=== PATIENT | female | born 1960 | race Caucasian/White ===

== ENCOUNTER → 2016-12-03 | Outpatient (CLI) | payer OTHER ==
[~2016-12-03] MED LIST: LINA72CA; MULTCAP42 PO; PARO1CAP PO; VENL75CA73 PO
== END | disposition home or self-care (01) ==
LOC: C.PAPS 08:52
PROVIDERS: ATTEND Obstetrics & Gynecology
DX: Z01.419 Encounter for gynecological examination (general) (routine) without abnormal findings (principal)

== ENCOUNTER → 2017-01-20 | Outpatient (CLI) | payer OTHER ==
[2017-01-20 14:15] VITALS: BP 114/74; PULSE 87; TEMP 36.7; O2SAT 97
--- NOTE | 2017-01-20 17:20 | Radiation Oncology Follow-Up ---
Radiation Oncology Follow-Up Date of Visit Jan 20, 2017. Reason For Visit Annual follow-up Radiation Completion Date 06/20/14 Diagnosis (1) Ductal carcinoma in situ of breast Status: Resolved Onset Date: 04/07/2014 Stage: 0 Permanent Comment: Status post abnormal left breast mammogram Status post ultrasound-guided fine-needle aspiration 04/07/2014 revealing carcinoma DCIS Status post needle localization biopsy 05/16/2014 DCIS Stage pTis Estrogen receptor positive progesterone receptor positive negative margins Tamoxifen stopped due to side effects Last Edited By: Mitzi Alvarez on Jan 26, 2015 15:05 History of Present Illness Ms. Renteria is a 56-year-old female who was followed with annual screenings. On she underwent a bilateral digital screening mammogram. This revealed new microcalcifications posteriorly in the upper aspect of the left breast seen on the MLO view only. There were no suspicious masses or architectural distortion seen on routine digital images. Based on these findings additional imaging was recommended. On 03/28/2014 patient underwent a unilateral digital diagnostic mammogram and targeted breast ultrasound. These revealed posteriorly in the upper outer aspect of the left breast suspicious microcalcifications. The area was able to be identified by ultrasound. Given its location a stereotactic biopsy was thought to be difficult but she was felt to be a candidate for an ultrasound-guided biopsy. On 04/07/2014 patient underwent an ultrasound-guided fine-needle aspiration and vacuum-assisted core biopsy. This tissue revealed malignant epithelial cells consistent with an adenocarcinoma. Specimen: [id number]. A breast biopsy was also obtained. This revealed ductal carcinoma in situ high grade with necrosis areas no invasive carcinoma was identified. Immunohistochemical stains were positive for both estrogen and progesterone receptors with greater than 90% of the cells staining positive. Specimen S [id number] Case: [id number]. She had previously been seen and treated at [facility] for a cervical cancer diagnosed in 2005. For this reason she had initially gone to [facility] for their evaluation and recommendations. They reviewed the slides and confirmed a ductal carcinoma in situ, solid and cribriform with nuclear grade 2-3 with comedonecrosis and associated microcalcifications. Accession: [id number].The patient was subsequently seen by Dr. Diaz for evaluation and discussion of the surgical treatment options. The decision was made to proceed with a breast conserving therapy. Therefore on 05/16/2014 the patient underwent a left breast needle localization biopsy. This confirmed residual ductal carcinoma in situ intermediate grade with comedonecrosis. The examined margins were free of neoplasm. DCIS was 0.2 cm from the inked inferior margin and less than 0.1 cm from the medial margin. Additional inferior and medial margins were taken and these were negative for in situ and invasive carcinoma. The area of residual DCIS appeared to extend over an area between 1 and 1.5 cm. Case: [id number]. Dr. Diaz's asked us to see his patient for discussion of the role of radiation. The patient is specifically interested in the use of accelerated partial breast irradiation. She was found to be a candidate for accelerated partial breast treatment. She was treated from 06/14/2014 to 06/20/2014. She received 3850 cGy. Interim History She isn't doing well over this past year. She has noted no changes to her breast she does have the telangiectasia which may be slightly worse compared to last year. She continues to have mild discomfort laterally. There is tightness when she raises her arm up over her head in the area of the axilla anteriorly. She has noted no masses in this area. No changes of the overlying skin. The discomfort is minimal and does not require any cldb-zhm-zjvtsho medications. She had a mammogram 03/20/2016. There was no evidence of breast malignancy. Routine diagnostic mammogram was recommended in 12 months. BI- RADS Category 2. Allergies Uncoded Allergies: sulfa (Allergy, Mild, hives, 06/02/14) Home Medications Scheduled Linaclotide (Linzess), DAILY Multiple Vitamin (Multivitamins), 1 CAP PO DAILY Venlafaxine Hcl (Venlafaxine Extended Rel), 1 CAP PO DAILY Review of Systems Gastrointestinal: Symptoms: Constipation, Diarrhea GI Comments: IBS Oral: Symptoms: No Problems Respiratory: Symptoms: WNL Urinary: Symptoms: WNL Skin: Symptoms: No Problems Other Skin Symptoms: Itchy at times Breast: Right Upper Arm Measurement: 26.0 Right Mid Arm Measurement: 22.5 Right Wrist Measurement: 16.5 Left Upper Arm Measurement: 25.8 Left Mid Arm Measurement: 21.5 Left Wrist Measurement: 16.0 Arm Dominence: Left Patient Cosmetic Evaluation: Excellent Staff Cosmetic Evalaluation: Excellent Physical Exam Vital Signs Date Time Temp Pulse Resp B/P (MAP) Pulse Ox O2 Delivery O2 Flow Rate FiO2 01/20/17 14:15 36.7 87 18 114/74 97 Pain: Pain Onset: since surgery or radiation Pain Duration: since surgery Side: Left Pain Location: axilla Patient Pain Scale: 0 - 10 Initial Pain Intensity: 0.0 Pain Description: Soreness Additional Comments: sometimes get a painthrough left breast, and it can be tender to touch Fatigue: None General Appearance: no apparent distress Eyes: normal inspection, EOMI ENT: normal ENT inspection, hearing grossly normal Neck: no adenopathy, thyroid normal Respiratory/Chest: lungs clear, no respiratory distress, no accessory muscle use Breast: Left breast. She does have telangiectasia in the upper outer portion of the breast. This is slightly increased compared to last year. There are no masses or tenderness and no change of the axilla. There is fibrous tissue in the area of her incision. There is mild tightness in the area of the pectoralis minor. She has full range of motion of the shoulder. Using the [place] score cosmesis she has a poor outcome. Right breast showed no masses or tenderness and no axillary adenopathy. Cardiovascular: regular rate, rhythm, no gallop, no murmur Abdomen: non tender, soft, no organomegaly Extremities: no pedal edema Neurologic/Psychiatric: no motor/sensory deficits, alert, normal mood/affect Skin: warm/dry Additional Studies Mammography as reviewed above. Assessment & Plan Plan: Continues with scheduled mammography. Continue follow-up with Dr. Diaz and her primary care physician. We discussed stretching exercises for her anterior axilla. We also discussed massage therapy for the tightness of the pectoralis minor and across the scar to the areas of fibrous tissue. We asked her to return to our office in 1 year. Total Time In Follow-Up I spent 20 minutes speaking to the patient and performing examination. I spent 15 minutes reviewing information in completing this note. Copy To Niels Diaz M.D.; Lindsay Marquez M.D. 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
== END | disposition home or self-care (01) ==
LOC: C.ONC 13:52
PROVIDERS: ATTEND Physician Assistant Medical
DX: Z08 Encounter for follow-up examination after completed treatment for malignant neoplasm (principal); Z92.3 Personal history of irradiation; Z85.3 Personal history of malignant neoplasm of breast

== ENCOUNTER → 2018-01-20 | Outpatient (CLI) | payer OTHER ==
[2017-01-20 14:15] VITALS: BP 114/74; PULSE 87
[~2018-01-20] MED LIST changes: -PARO1CAP PO
[2018-01-20 13:30] VITALS: BP 139/83; PULSE 76; TEMP 36.6; O2SAT 96
--- NOTE | 2018-01-20 14:06 | Radiation Oncology Follow-Up ---
Radiation Oncology Follow-Up Date of Visit Jan 20, 2018. Reason For Visit Annual follow-up Radiation Completion Date 06/20/14 Diagnosis (1) Ductal carcinoma in situ of breast Status: Resolved Onset Date: 04/07/2014 Stage: 0 Permanent Comment: Status post abnormal left breast mammogram Status post ultrasound-guided fine-needle aspiration 04/07/2014 revealing carcinoma DCIS Status post needle localization biopsy 05/16/2014 DCIS Stage pTis Estrogen receptor positive progesterone receptor positive negative margins Tamoxifen stopped due to side effects Last Edited By: Mitzi Alvarez on Jan 26, 2015 15:05 History of Present Illness Ms. Renteria was followed with annual screenings. On 03/14/2014 she underwent a bilateral digital screening mammogram. This revealed new microcalcifications posteriorly in the upper aspect of the left breast seen on the MLO view only. There were no suspicious masses or architectural distortion seen on routine digital images. Based on these findings additional imaging was recommended. On 03/28/2014 patient underwent a unilateral digital diagnostic mammogram and targeted breast ultrasound. These revealed posteriorly in the upper outer aspect of the left breast suspicious microcalcifications. The area was able to be identified by ultrasound. Given its location a stereotactic biopsy was thought to be difficult but she was felt to be a candidate for an ultrasound-guided biopsy. On 04/07/2014 patient underwent an ultrasound-guided fine-needle aspiration and vacuum-assisted core biopsy. This tissue revealed malignant epithelial cells consistent with an adenocarcinoma. Specimen: [id number]. A breast biopsy was also obtained. This revealed ductal carcinoma in situ high grade with necrosis areas no invasive carcinoma was identified. Immunohistochemical stains were positive for both estrogen and progesterone receptors with greater than 90% of the cells staining positive. Specimen S [id number] Case: [id number]. She had previously been seen and treated at [facility] for a cervical cancer diagnosed in 2005. For this reason she had initially gone to [facility] for their evaluation and recommendations. They reviewed the slides and confirmed a ductal carcinoma in situ, solid and cribriform with nuclear grade 2-3 with comedonecrosis and associated microcalcifications. Accession: [id number].The patient was subsequently seen by Dr. iDaz for evaluation and discussion of the surgical treatment options. The decision was made to proceed with a breast conserving therapy. Therefore on 05/16/2014 the patient underwent a left breast needle localization biopsy. This confirmed residual ductal carcinoma in situ intermediate grade with comedonecrosis. The examined margins were free of neoplasm. DCIS was 0.2 cm from the inked inferior margin and less than 0.1 cm from the medial margin. Additional inferior and medial margins were taken and these were negative for in situ and invasive carcinoma. The area of residual DCIS appeared to extend over an area between 1 and 1.5 cm. Case: [id number]. Dr. Diaz's asked us to see his patient for discussion of the role of radiation. The patient is specifically interested in the use of accelerated partial breast irradiation. She was found to be a candidate for accelerated partial breast treatment. She was treated from 06/14/2014 to 06/20/2014. She received 3850 cGy. Interim History She has been doing well over this past year. She is noted no changes to her breast. She is noticed no masses and no change of the axilla. She has mild tenderness if pressure is placed onto the left breast. She does not give this pain level. He does not require any [id number]-[id number] medications. She has had no swelling of her arm. She is up-to-date on mammography. She is not on antiestrogen therapy. She did not tolerate tamoxifen. She had been followed by Dr. Diaz, she was discharged from his practice when he retired. She underwent upper GI endoscopy and colonoscopy recently at [facility]. She was evaluated due to irritable bowel syndrome. Allergies Uncoded Allergies: sulfa (Allergy, Mild, hives, 06/02/14) Home Medications Scheduled Linaclotide (Linzess), DAILY Multiple Vitamin (Multivitamins), 1 CAP PO DAILY Venlafaxine Hcl (Venlafaxine Extended Rel), 1 CAP PO DAILY Review of Systems Gastrointestinal: Symptoms: Constipation, Diarrhea GI Comments: IBS Oral: Symptoms: No Problems Respiratory: Symptoms: WNL Urinary: Symptoms: WNL Skin: Symptoms: No Problems Other Skin Symptoms: Itchy at times Breast: Right Upper Arm Measurement: 26.0 Right Mid Arm Measurement: 22.5 Right Wrist Measurement: 16.5 Left Upper Arm Measurement: 25.8 Left Mid Arm Measurement: 21.5 Left Wrist Measurement: 16.0 Arm Dominence: Left Patient Cosmetic Evaluation: Excellent Staff Cosmetic Evalaluation: Excellent Physical Exam Fatigue: None General Appearance: no apparent distress Eyes: normal inspection, EOMI ENT: normal ENT inspection, hearing grossly normal Neck: no adenopathy, thyroid normal Respiratory/Chest: lungs clear, no respiratory distress, no accessory muscle use Breast: Breast examination reveals well healed incision of the left breast. She has telangiectasia in the area of the incision and in the upper outer quadrant. There are post treatment fibrous changes in the upper outer quadrant. There are no distinct masses. There is no tenderness and no axillary adenopathy. Using the [place] score cosmesis she has a fair outcome. The right breast showed no masses or tenderness and no axillary adenopathy. Cardiovascular: regular rate, rhythm, no gallop, no murmur Extremities: no pedal edema Neurologic/Psychiatric: no motor/sensory deficits, alert, normal mood/affect Skin: warm/dry Pain Management Patient Reports Pain: No Side: Left Pain Location: Breast Patient Preferred Pain Scale: 0 - 10 Initial Pain Intensity: 0.0 Pain Management Plan She denies pain. She calls the discomfort of the breast soreness. It does not require any vinc-iug-hhdbxob or prescriptive pain medications. Laboratory Laboratory Results: not applicable Pathology Pathology Results: were reviewed, and pertinent findings noted in HPI Imaging Imaging Studies: were reviewed, and pertinent findings noted below Imaging Comments She had a mammogram April 27, 2017. There was no evidence of breast malignancy. A 12 month follow-up was recommended. This was given a BI-RADS Category 2. Assessment & Plan Plan: Continue with annual mammography. She stated that her courtroom reporter gave her an order for mammogram which she will schedule in [place]. Continue follow- up with her primary care provider. We discussed the telangiectasia of the upper outer quadrant. She is not concerned. I reviewed with her should this area be visible when wearing certain garments she could possibly use makeup to cover the area. This does not bother her or give her any concern at this time. We asked her to return to our office in 1 year. She may call if she has any questions or concerns in the interim. Total Time In Follow-Up I spent 20 minutes speaking to the patient and performing examination. I spent 15 minutes reviewing information and completing this note. Copy To Lindsay Marquez M.D. 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
== END | disposition home or self-care (01) ==
LOC: C.ONC 13:24
PROVIDERS: ATTEND Physician Assistant Medical
DX: Z08 Encounter for follow-up examination after completed treatment for malignant neoplasm (principal); Z92.3 Personal history of irradiation; Z86.000 Personal history of in-situ neoplasm of breast